=== PATIENT | male | born 1970 | race Caucasian/White ===

== ENCOUNTER 2018-06-19 13:20 | Emergency (ER) | payer OTHER ==
[~2018-06-19] VITALS: Ht 170.2 cm; Wt 75.0 kg
[2018-06-19] MEDS ORDERED: ATOR20TA86 PO (13:54)
[2018-06-19] MEDS ORDERED: LISI-661 PO (13:54)
[2018-06-19] MEDS ORDERED: HYDR25TA PO (13:54)
[2018-06-19] MEDS ORDERED: PredniSONE 20 MG TABLET PO ONE (15:15)
[2018-06-19] MEDS ORDERED: IPRATROPIUM BROMIDE 0.5 MG/2.5 ML NEB SOLUTION NEB ONE (15:15)
[2018-06-19] MEDS ORDERED: ALBUTEROL SULFATE 2.5 MG/0.5 ML NEB SOLUTION NEB ONE (15:15)
[2018-06-19 16:08] VITALS: BP 124/77
== END 2018-06-19 16:08 | disposition home or self-care (01) ==
LOC: EMS 13:21
DX: J44.9 Chronic obstructive pulmonary disease, unspecified (principal); I10 Essential (primary) hypertension; Z79.899 Other long term (current) drug therapy
CPT/HCPCS: 94640; 99283; J7512